=== PATIENT | female | born 1985 | race Caucasian/White ===

== ENCOUNTER → 2022-11-04 | Outpatient (CLI) | payer OTHER, SELFPAY ==
[2022-11-11 09:08] LABS: HPV APTIMA, High Risk Negative (Negative)
== END | disposition home or self-care (01) ==
LOC: LABSPEC 15:40
PROVIDERS: PCP Family Medicine; Referring Provider Advanced Practice Midwife; Visit Provider Advanced Practice Midwife
DX: Z12.4 Encounter for screening for malignant neoplasm of cervix (principal)
CPT/HCPCS: 87624; 88175; G0145

== ENCOUNTER → 2022-11-09 | Outpatient (CLI) | payer OTHER, SELFPAY ==
--- NOTE | 2022-11-09 15:18 | US_ITS ---
EXAM: US PELVIS TRANSVAGINAL CLINICAL INDICATION: IUD string check, abnormal uterine bleeding TECHNIQUE: Transvaginal pelvic ultrasound was performed with grayscale and color Doppler imaging. Transvaginal imaging was used for better evaluation of the endometrium and adnexa. COMPARISON: No relevant prior studies available. FINDINGS: UTERUS/CERVIX: There is midline shadowing IUD in the upper-mid uterus. Uterus 8.8 cm x 4.3 cm x 5.4 cm. Endometrial thickness 3 mm. Tiny echogenic foci in the lower uterine segment endometrium junction zone. RIGHT OVARY: 2.3 cm x 1.6 cm x 1.9 cm. Non-enlarged, normal echogenicity. Blood flow is present in the right ovary. LEFT OVARY: 3.7 cm x 1.8 cm x 2.5 cm with dominant 1.7 cm x 1.4 cm x 1.7 cm follicle and smaller adjacent follicle. Non-enlarged, normal echogenicity. Blood flow is present in the left ovary. FREE FLUID: Slight cul-de-sac fluid. BLADDER: Empty bladder which cannot be evaluated with this probe. US/Transvaginal Non- IMPRESSION: Midline adequately positioned IUD. Dominant follicle of 1.7 cm in the left ovary. Slight cul-de-sac fluid. Electronically Signed: Fabiola Saucedo MD at 8:52 EDT ,
== END | disposition home or self-care (01) ==
LOC: US 15:17
PROVIDERS: PCP Family Medicine; Referring Provider Advanced Practice Midwife; Visit Provider Advanced Practice Midwife
DX: N93.9 Abnormal uterine and vaginal bleeding, unspecified (principal)
CPT/HCPCS: 76830

== ENCOUNTER 2023-05-03 12:39 | Day surgery (SDC) | payer OTHER, SELFPAY ==
--- NOTE | 2023-05-03 | FALS_PTH ---
PATIENT: ROCAEL MARCIAL LOC: [facility] U#:[id number] AGE/SX: 37/F ROOM: RE05/03/[address]: Dr. Lo Brown DO : 1985 BED: DIS: 05/03/2023 SPEC #: [id number] RECD: 05/04/23 08:25 STATUS: FRANSICO ELSI #: [id number] PAT: 05/03/23 00:[address]: Lo Brown DEPT: SURGICAL PATHOLOGY RECD BY: Makenzie Torers ENTERED: 05/04/23 08:25 SP TYPE: FALL TUBES OTHR DR: Dr. David Foreman DO Tissues: Fallopian tube Procedures: Surgery Specimen Level II HEADER OPERATION: Laparoscopic salpingectomy, removal IUD PRE-OP DIAGNOSIS: IUD strings lost, sterilization TISSUE SUBMITTED: Bilateral fallopian tubes MICROSCOPIC DIAGNOSIS Right and left fallopian tubes, bilateral salpingectomies: Complete cross-sections of two fallopian tubes with no pathologic change. AM:alysha 05/05/2023 MICROSCOPIC DESCRIPTION Slides are reviewed. GROSS DESCRIPTION Received in fixative is one container labeled with the patient's name and designated bilateral fallopian tubes. The specimen consists of two fallopian tubes with an average length of 6.0 cm and has an average diameter of 0.5 cm. Both fallopian tubes have normal fimbriated ends. No mass lesions are identified. Tight Cooper sections are submitted in two cassettes as follows: 1 - one fallopian tube, 2??the other fallopian tube. / AM:alysha 05/04/2023 TC:4 CPT: 27858 x2
--- NOTE | 2023-05-03 13:09 | HP.PCM_ITS ---
History and Physical Date of Admission: 05/03/23 Intake Vital Signs 03/17/2311:02 04/26/2311:22 04/26/2311:24 Height 5 ft 7 in 5 ft 7 in 5 ft 7 in Weight: 147 lb 4 oz BMI 23.1 BP 119/78 Intake Visit Reasons: BS [employer] Specials Required: No Is patient in pain?: No Allergies codeine Allergy (Unknown, Verified 04/26/23 11:22) Other Medications montelukast 10 mg tablet (Singulair) 10 mg PO DAILY 11/04/22 [History Confirmed 04/26/23] albuterol sulfate 90 mcg/actuation aerosol inhaler 2 puff inhalation Q6H PRN 04/26/23 [History Confirmed 04/26/23] Post menopausal: No Patient : No : No PFSH Medical History Abnormal uterine bleeding Anxiety Asthma Depression Surgical History (Updated 04/26/23 @ 11:26 by Alycia Ma) S/P knee surgery Social History Smoking Status: Never smoker alcohol intake: current alcohol intake frequency: holidays/special occasions only substance use type: does not use what type of physical activity do you participate in: walking and running HPI BS Details: ROCAEL MARCIAL is a 37 year old who presents for preoperative examination for scheduled laparoscopic bs and removal of IUD with possible hysteroscopic guided removal of the IUD. History Elective abortions Hx Para 2 Spontaneous abortions Hx # Term Pregnancies Ectopic pregnancies Hx # Pregnancies Multiple births # of living children 2 Past Pregnancies Del. Date Name GA/Weeks Outcome Route Bth Weight Gen Labor Lgth Anesthesia Del Locatn Provider FOB Unknown TATIANNA - 2002 Female Unknown ELMO - 2005 Male ROS Const ROS Unobtainable: All systems reviewed & are unremarkable except as noted in H Resp Resp: Reports system reviewed and no additional complaints, except as documented; Denies cough GI GI: Reports as per HPI Psych Psych: Reports system reviewed and no additional complaints, except as documented Exam Const General: cooperative, healthy appearing, comfortable and no acute distress Resp Effort & Inspection: normal respiratory effort Skin General: no rashes or lesions noted Psych Appearance: grossly normal Speech and Movement: speech and movement normal Coding Level of Care Code Off vis,est,level 3 Diagnoses IUD strings lost T83.32XA Sterilization consult Z30.09 Assessment and Plan Assessment and Plan (1) IUD strings lost: Status: Acute (2) Sterilization consult: Status: Acute Plan After discussing the patient's diagnosis and treatment plan options, patient wishes to proceed with surgical management. I have discussed with the patient the risks, benefits, and alternatives of the procedure which include but are not limited to risks of anesthesia, bleeding, infection, possible damage to bowel, bladder, or surrounding vasculature which could lead to additional surgery to evaluate any complications. Patient agrees to procedure and wishes to proceed. ACOG/uptodate references given for additional information regarding procedure. plan is for hystoscopic removal of IUD as needed, laparoscopic bilateral salpingectomy for permanent sterilization. Surgery is scheduled for 05/03/23.
[2023-05-03 13:21] VITALS: BP 108/63; PULSE 64; RESP 18; TEMP 36.9; O2SAT 100; BMI 22.5
[2023-05-03 13:23] LABS: Hematocrit 37.6 % (37-47); Hemoglobin 12.7 g/dL (12.0-15.0); Mean Corp Hgb Conc 33.8 g/dL (32-36); Mean Corpuscular Hgb 30.2 pg (27.0-32.0); Mean Corpuscular Volume 89.3 fL (81-99); Platelet Count 258 K/mm3 (150-450); RBC Distribution Width CV 12.3 % (11.6-14.6); Red Blood Count 4.21 M/mm3 (4.2-5.4); White Blood Count 7.8 K/mm3 (4.4-11.0)
[2023-05-03] MEDS: Lactated Ringers 1,000 ML 15 ML IV (13:24)
[2023-05-03 13:25] LABS: Internal QC Validated? YES +Cl - CLEAR BKGD; Pregnancy, Urine Negative Negative
--- NOTE | 2023-05-03 13:29 | DCINST_ITS ---
Discharge Instructions Diet Discharge Diet: No restrictions Activity Discharge Activity: Return to Normal Activity, May Not Drive (for two weeks or while taking narcotic pain medications.), May Shower and May Take a Tub Bath (in 7 days) May resume sexual activity in: 1 week Weight Bearing Status: Full weight bearing Dressing / Incision Call your doctor if you observe: Using more than 1 pad per hour, Shortness of breath, Chest pain and Uncontrolled pain Suture Line Care: Avoid Pulling/Pushing and Avoid Pinching/Bending Remove Dressing in: 1 week (if present) Cleanse incision/area with: Soap & Water and Keep Dressing Clean & Dry Follow Up Care Please Follow Up With: Lo Brown DO When: Call to make an appointment with your doctor for a follow up incision check in 1-2 weeks. Test Results: Test results from this visit will be discussed in further detail at your follow- up appointment, if applicable. Discharge Plan Admission Primary Reason for Your Visit: laparoscopic bilateral salpingectomy Attending Provider: Lo Brown Primary Care Provider: David Foreman Discharge Orders/Prescriptions Prescriptions: New oxycodone-acetaminophen [Percocet] 5-325 mg tablet 1 tab PO Q4H PRN (Reason: pain) 7 Days Qty: 10 0RF Rx Instructions: 1-2 tabs q 4 hrs as needed for pain naproxen 500 mg tablet 500 mg PO BID PRN (Reason: pain) Qty: 30 0RF Continued montelukast [Singulair] 10 mg tablet 10 mg PO DAILY levalbuterol tartrate 45 mcg/actuation HFA aerosol inhaler 1 inh INHALATION PRN Referrals / Follow Up: David Foreman DO [Primary Care Provider] - Disposition Disposition (needs filled in before D/C Order can be placed): Home, Self Care
[2023-05-03] MEDS: Bupivacaine 0.25% 30 ML Vial (13:49)
--- NOTE | 2023-05-03 14:39 | OP.PCM_ITS ---
Problems Associated Problem List Diagnoses (1) IUD strings lost: (2) Sterilization consult: Report of Operation Date of Procedure: 05/03/23 Pre-Operative Diagnosis: desires permanent sterilization, Lost IUD strings Post-Operative Diagnosis: desires permanent sterilization, lost IUD strings Surgery/Procedure Performed:: laparoscopic bilateral salpingectomy Surgeon: Lo Brown commercial litigation associate: Pavel Scott Type of Anesthesia: General Anesthesiologist: Danny Calvert Drains: none Estimated Blood Loss (mL): 5cc Description of Procedure: Patient was taken in the operating room and was placed under general anesthesia was prepped and draped in normal sterile fashion in the dorsal lithotomy position. Bladder was drained of clear urine and SCDs were on preoperatively. A long saud forceps device was used to remove the IUD without complication. A vaginal sponge stick was placed. Attention was then paid to the abdominal portion of the procedure and the umbilicus was elevated and injected with Marcaine and after a 5 mm incision was made and a 5 mm trocar was inserted into the abdomen under direct visualization using the laparoscope. Abdomen was insufflated with CO2 gas and a 5 mm optical trocar was placed under direct visualization. A left lower quadrant 5 mm port and a mini grasper suprapubically were placed under direct visualization. Uterus was well visualized and bilateral fallopian tubes identified and bilateral tubes were elevated and transecting across the mesosalpinx and the attachment to the uterine corpus bilaterally the tubes were removed without complication. Excellent hemostasis was noted. Fallopian tubes were removed through the lower port sites without complication. Liver and upper abdomen were visualized notably within normal limits and no other gross abnormalities were seen in the abdomen. All instruments removed from the abdomen after gas was desufflated. Port sites were closed with 3-0 Monocryl Steri's and op sites were applied. All instruments removed from the vagina and patient was awoken and taken recovery in stable condition. Complications none Admit VTE Documentation VTE Present on Admission: No VTE Mechan Device Prophylaxis: SCD's VTE Pharm Prophylaxis ordered?: No Multi Select Codes Urinary/Genital Urinary/Genital CPT Codes: 62939 Laproscopic BS/O
[2023-05-03 14:50] VITALS: BP 108/63; BP 97/61; PULSE 66; RESP 16; TEMP 36.3; O2SAT 100
[2023-05-03 15:00] VITALS: BP 108/63; BP 98/62; PULSE 52; RESP 18; O2SAT 100
[2023-05-03 15:15] VITALS: BP 108/63; BP 93/58; PULSE 55; RESP 18; O2SAT 100
[2023-05-03 15:30] VITALS: BP 108/63; BP 92/52; PULSE 57; RESP 18; TEMP 36.5; O2SAT 98
[2023-05-03 15:49] VITALS: BP 108/63
== END 2023-05-03 16:18 | disposition home or self-care (01) ==
LOC: SDC 12:44 → AC 12:44
PROVIDERS: PCP Family Medicine; Referring Provider Obstetrics & Gynecology; Visit Provider Obstetrics & Gynecology
PROC: (CPT 58661; principal; 2023-05-03 14:00)
PROC: 0UDB8ZZ Extraction of Endometrium, Via Natural or Artificial Opening Endoscopic (ICD-10-PCS; CPT 58558; 2023-05-03 14:00)
DX: Z30.2 Encounter for sterilization (principal); J45.909 Unspecified asthma, uncomplicated; Z79.899 Other long term (current) drug therapy; Z30.432 Encounter for removal of intrauterine contraceptive device
CPT/HCPCS: 58661; 58301; 00840; 81025; 85027; 86850; 86900; 86901; 88302; J7120; J2405